=== PATIENT | male | born 1980 | race Caucasian/White ===

== ENCOUNTER 2016-10-15 20:06 | Emergency (ER) | payer MEDICAID ==
[~2016-10-15] VITALS: Ht 175.3 cm; Wt 67.7 kg
[2016-10-15] MEDS ORDERED: IBUP200C5 PO (20:28)
[2016-10-15] MEDS ORDERED: KETOROLAC 30 MG/1 ML ONE (20:51)
[2016-10-15] MEDS ORDERED: METHOCARBAMOL 750 MG TABLET ONE (20:51)
[2016-10-15] MEDS ORDERED: METHOCARBAMOL 750 MG TABLET PO ONE (22:00)
[2016-10-15] MEDS ORDERED: KETOROLAC 30 MG/1 ML IM ONE (22:00)
[2016-10-15 22:40] VITALS: BP 111/77
== END 2016-10-15 22:42 | disposition home or self-care (01) ==
LOC: ED 22:25
DX: S39.012A Strain of muscle, fascia and tendon of lower back, initial encounter (principal); S29.012A Strain of muscle and tendon of back wall of thorax, initial encounter; N30.01 Acute cystitis with hematuria; F17.200 Nicotine dependence, unspecified, uncomplicated; G89.29 Other chronic pain; X58.XXXA Exposure to other specified factors, initial encounter; Y93.89 Activity, other specified; Y92.89 Other specified places as the place of occurrence of the external cause; Y99.8 Other external cause status
CPT/HCPCS: 71010; 81001; 87086; 96372; 99285; J1885

== ENCOUNTER 2017-01-20 11:10 | Emergency (ER) | payer MEDICAID ==
[~2017-01-20] VITALS: Ht 175.3 cm; Wt 75.0 kg
[~2017-01-20 11:10] MED LIST: IBUP200C5 PO
[2017-01-20 11:12] VITALS: BP 118/79
[2017-01-20] MEDS ORDERED: LIDOCAINE 1%, 20ML ONE (13:59)
[2017-01-20] MEDS ORDERED: LIDOCAINE 1%, 20ML SQ ONE (14:00)
[2017-01-20] MEDS ORDERED: DIPH,PERTUSS(ACELL),TET VAC/PF 0.5 ML IM-VACC ONE ×2 (14:00)
== END 2017-01-20 14:30 | disposition home or self-care (01) ==
LOC: ED 14:24
DX: K64.8 Other hemorrhoids (principal); L73.9 Follicular disorder, unspecified; L03.012 Cellulitis of left finger; G43.909 Migraine, unspecified, not intractable, without status migrainosus
CPT/HCPCS: 99283

== ENCOUNTER 2017-05-24 17:28 | Emergency (ER) | payer MEDICAID ==
[~2017-05-24] VITALS: Ht 152.4 cm; Wt 66.9 kg
[2017-05-24 18:30] LABS: BASOPHILS # (AUTO) 0.02 x10^3/uL (0-0.1); BASOPHILS % (AUTO) 0 % (0-1); EOSINOPHILS # (AUTO) 0.09 x10^3/uL (0-0.4); EOSINOPHILS % (AUTO) 1 % (1-7); LYMPHOCYTES # (AUTO) 0.95 x10^3/uL (1-3.4); LYMPHOCYTES % (AUTO) 9 % (22-44); MD NO; MEAN CORPUSCULAR HEMOGLOBIN 29.8 pg (27.5-34.5); MEAN CORPUSCULAR HGB CONC 34.3 g/dL (33.2-36.2); MEAN CORPUSCULAR VOLUME 86.8 fL (81-97); MEAN PLATELET VOLUME 7.9 fL (7.4-10.4); MONOCYTES # (AUTO) 0.54 x10^3/uL (0.2-0.8); MONOCYTES % (AUTO) 5 % (2-9); NEUTROPHILS # (AUTO) 8.56 x10^3/uL (1.8-6.8); NEUTROPHILS % (AUTO) 84 % (42-75); PLATELET COUNT 257 x10^3/uL (130-400); RED CELL DISTRIBUTION WIDTH 12.9 % (9.4-14.8)
[2017-05-24] MEDS ORDERED: CLINDAMYCIN PMX 600MG/50ML 50 ML IVPB ONE (18:30)
[2017-05-24] MEDS ORDERED: MORPHINE SULFATE 4 MG/ML, 1ML ONE (18:32)
[2017-05-24] MEDS ORDERED: CLINDAMYCIN PMX 600MG/50ML 50 ML ONE (18:32)
[2017-05-24] MEDS: MORPHINE SULFATE 4 MG/ML, 1ML IV PRN ×2 (18:35→18:49)
[2017-05-24 18:40] LABS: ALBUMIN 3.3 g/dL (3.4-5.0); ANION GAP 6 mmol/L (5-15); CALCIUM 8.4 mg/dL (8.5-10.1); CHLORIDE 107 mmol/L (98-107); CREATININE 0.87 mg/dL (0.7-1.3)
[2017-05-24] MEDS ORDERED: SODIUM CHLORIDE 0.9% 1,000ML IVBOLUS ONE (19:30)
[2017-05-24 20:04] VITALS: BP 115/65
== END 2017-05-24 20:16 | disposition home or self-care (01) ==
LOC: ED 20:10
DX: L03.113 Cellulitis of right upper limb (principal); R00.0 Tachycardia, unspecified; F17.200 Nicotine dependence, unspecified, uncomplicated
CPT/HCPCS: 36415; 73130; 80048; 82040; 83605; 85025; 87040; 96365; 96375; 99285; J7030

== ENCOUNTER 2017-08-19 03:43 | Emergency (ER) | payer MEDICAID ==
[~2017-08-19] VITALS: Ht 175.3 cm; Wt 63.6 kg
[2017-08-19 03:44] VITALS: BP 112/76
== END 2017-08-19 03:49 | disposition left against medical advice (07) ==
LOC: ED 03:43
DX: Z53.21 Procedure and treatment not carried out due to patient leaving prior to being seen by health care provider (principal)

== ENCOUNTER 2017-08-26 11:25 | Emergency (ER) | payer MEDICAID ==
[~2017-08-26] VITALS: Ht 175.3 cm; Wt 61.8 kg
[2017-08-26 11:31] VITALS: BP 121/83
[2017-08-26] MEDS ORDERED: MAALOX/HYOSCYAMINE/LIDOCAINE 45 ML BTL PO ONE (12:00)
[2017-08-26] MEDS ORDERED: ONDANSETRON 2MG/ML, 2ML IVPush ONE (12:00)
[2017-08-26] MEDS ORDERED: SODIUM CHLORIDE FLUSH 10ML SYR IVF ONE (12:00)
[2017-08-26] MEDS ORDERED: DICYCLOMINE 10 MG/ML, 2ML IM ONE (12:00)
[2017-08-26] MEDS ORDERED: SODIUM CHLORIDE 0.9% 1,000ML IVBOLUS ONE (12:00)
[2017-08-26] MEDS ORDERED: FAMOTIDINE 20 MG/2 ML IVP ONE (12:00)
[2017-08-26] MEDS ORDERED: MAALOX/HYOSCYAMINE/LIDOCAINE 45 ML BTL ONE (12:12)
[2017-08-26] MEDS ORDERED: FAMOTIDINE 20 MG/2 ML ONE (12:12)
[2017-08-26] MEDS ORDERED: DICYCLOMINE 10 MG/ML, 2ML ONE (12:12)
[2017-08-26] MEDS ORDERED: ONDANSETRON 2MG/ML, 2ML ONE (12:12)
[2017-08-26 12:16] LABS: BASOPHILS # (AUTO) 0.01 x10^3/uL (0-0.1); BASOPHILS % (AUTO) 0 % (0-1); EOSINOPHILS # (AUTO) 0.14 x10^3/uL (0-0.4); EOSINOPHILS % (AUTO) 2 % (1-7); LYMPHOCYTES # (AUTO) 1.81 x10^3/uL (1-3.4); LYMPHOCYTES % (AUTO) 29 % (22-44); MD NO; MEAN CORPUSCULAR HEMOGLOBIN 29.7 pg (27.5-34.5); MEAN CORPUSCULAR HGB CONC 34.4 g/dL (33.2-36.2); MEAN CORPUSCULAR VOLUME 86.3 fL (81-97); MEAN PLATELET VOLUME 8.2 fL (7.4-10.4); MONOCYTES # (AUTO) 0.58 x10^3/uL (0.2-0.8); MONOCYTES % (AUTO) 9 % (2-9); NEUTROPHILS # (AUTO) 3.79 x10^3/uL (1.8-6.8); NEUTROPHILS % (AUTO) 60 % (42-75); PLATELET COUNT 311 x10^3/uL (130-400); RED BLOOD COUNT 4.62 x10^6/uL (4.38-5.82); RED CELL DISTRIBUTION WIDTH 15.5 % (9.4-14.8)
[2017-08-26 12:28] LABS: ALANINE AMINOTRANSFERASE 33 U/L (12-78); ALBUMIN 3.4 g/dL (3.4-5.0); ANION GAP 5 mmol/L (5-15); CALCIUM 8.3 mg/dL (8.5-10.1); CHLORIDE 116 mmol/L (98-107); CREATININE 0.96 mg/dL (0.7-1.3)
[2017-08-26 12:30] LABS: ALKALINE PHOSPHATASE 86 U/L (45-117); BILIRUBIN,TOTAL 0.5 mg/dL (0.2-1.0); TOTAL PROTEIN 6.4 g/dL (6.4-8.2)
== END 2017-08-26 14:15 | disposition home or self-care (01) ==
LOC: ED 13:45
DX: R11.2 Nausea with vomiting, unspecified (principal); R19.7 Diarrhea, unspecified; R10.9 Unspecified abdominal pain
CPT/HCPCS: 36415; 80053; 83690; 85025; 86677; 96361; 96374; 96375; 99285; J2405; J7030; S0028

== ENCOUNTER 2017-08-30 02:24 | Emergency (ER) | payer MEDICAID ==
[~2017-08-30] VITALS: Ht 172.7 cm; Wt 65.0 kg
[2017-08-30 02:25] VITALS: BP 111/76
[2017-08-30] MEDS ORDERED: DICYCLOMINE 10 MG/ML, 2ML ONE (02:56)
[2017-08-30] MEDS ORDERED: ONDANSETRON 2MG/ML, 2ML ONE (02:56)
[2017-08-30] MEDS ORDERED: DICYCLOMINE 10 MG/ML, 2ML IM ONE (03:00)
[2017-08-30] MEDS ORDERED: SODIUM CHLORIDE FLUSH 10ML SYR IVF ONE (03:00)
[2017-08-30] MEDS ORDERED: ONDANSETRON 2MG/ML, 2ML IVPush ONE (03:00)
[2017-08-30] MEDS ORDERED: SODIUM CHLORIDE 0.9% 1,000ML IVBOLUS ONE (03:00)
[2017-08-30 03:05] LABS: BASOPHILS # (AUTO) 0.03 x10^3/uL (0-0.1); BASOPHILS % (AUTO) 0 % (0-1); EOSINOPHILS # (AUTO) 0.18 x10^3/uL (0-0.4); EOSINOPHILS % (AUTO) 2 % (1-7); LYMPHOCYTES # (AUTO) 2.41 x10^3/uL (1-3.4); LYMPHOCYTES % (AUTO) 27 % (22-44); MD NO; MEAN CORPUSCULAR HEMOGLOBIN 29.8 pg (27.5-34.5); MEAN CORPUSCULAR HGB CONC 34.3 g/dL (33.2-36.2); MEAN CORPUSCULAR VOLUME 86.8 fL (81-97); MEAN PLATELET VOLUME 8.3 fL (7.4-10.4); MONOCYTES # (AUTO) 0.74 x10^3/uL (0.2-0.8); MONOCYTES % (AUTO) 8 % (2-9); NEUTROPHILS # (AUTO) 5.67 x10^3/uL (1.8-6.8); NEUTROPHILS % (AUTO) 63 % (42-75); PLATELET COUNT 330 x10^3/uL (130-400); RED BLOOD COUNT 4.74 x10^6/uL (4.38-5.82); RED CELL DISTRIBUTION WIDTH 15.1 % (9.4-14.8)
[2017-08-30 03:14] LABS: ALANINE AMINOTRANSFERASE 33 U/L (12-78); ALBUMIN 3.4 g/dL (3.4-5.0); ANION GAP 5 mmol/L (5-15); CALCIUM 8.3 mg/dL (8.5-10.1); CHLORIDE 114 mmol/L (98-107); CREATININE 0.85 mg/dL (0.7-1.3)
[2017-08-30 03:16] LABS: ALKALINE PHOSPHATASE 95 U/L (45-117); BILIRUBIN,TOTAL 0.4 mg/dL (0.2-1.0); TOTAL PROTEIN 6.5 g/dL (6.4-8.2)
[2017-08-30 03:24] LABS: MICROSCOPIC INDICATED
[2017-08-30 03:33] LABS: CULTURE INDICATED? NO
== END 2017-08-30 04:23 | disposition home or self-care (01) ==
LOC: ED 03:18
DX: R10.84 Generalized abdominal pain (principal); R10.30 Lower abdominal pain, unspecified; F17.200 Nicotine dependence, unspecified, uncomplicated; R11.2 Nausea with vomiting, unspecified; R30.0 Dysuria
CPT/HCPCS: 36415; 80053; 81001; 83690; 85025; 96361; 96372; 96374; 99284; J0500; J2405; J7030

== ENCOUNTER 2018-03-07 12:50 | Emergency (ER) | payer MEDICAID ==
[~2018-03-07] VITALS: Ht 175.3 cm; Wt 67.2 kg
[~2018-03-07 12:50] MED LIST changes: +IBUP-1623 PO; -IBUP200C5 PO
[2018-03-07 13:13] VITALS: BP 136/87
[2018-03-07] MEDS ORDERED: HYDROcodone/APAP 5/325 TABLET PO ONE (13:30)
[2018-03-07] MEDS ORDERED: HYDROcodone/APAP 5/325 TABLET ONE (13:35)
== END 2018-03-07 14:00 | disposition home or self-care (01) ==
LOC: ED 13:54
DX: K02.9 Dental caries, unspecified (principal); K05.00 Acute gingivitis, plaque induced; F17.200 Nicotine dependence, unspecified, uncomplicated
CPT/HCPCS: 99283

== ENCOUNTER 2018-04-17 19:52 | Emergency (ER) | payer MEDICAID ==
[~2018-04-17] VITALS: Ht 170.2 cm; Wt 70.0 kg
[2018-04-17] MEDS ORDERED: IBUPROFEN 800 MG TABLET PO ONE (20:30)
[2018-04-17] MEDS ORDERED: IBUPROFEN 800 MG TABLET ONE (21:00)
[2018-04-17 21:07] VITALS: BP 122/86
== END 2018-04-17 21:09 | disposition home or self-care (01) ==
LOC: ED 21:00
DX: S83.412A Sprain of medial collateral ligament of left knee, initial encounter (principal); S83.422A Sprain of lateral collateral ligament of left knee, initial encounter; X58.XXXA Exposure to other specified factors, initial encounter; Y93.89 Activity, other specified; Y92.89 Other specified places as the place of occurrence of the external cause; Y99.8 Other external cause status
CPT/HCPCS: 29505; 99283

== ENCOUNTER 2019-02-15 18:10 | Emergency (ER) | payer MEDICAID ==
[~2019-02-15] VITALS: Ht 175.3 cm; Wt 71.0 kg
[2019-02-15 18:23] VITALS: BP 136/85
[2019-02-15] MEDS ORDERED: ONDANSETRON 2MG/ML, 2ML IVPush ONE (19:00)
[2019-02-15] MEDS ORDERED: MORPHINE SULFATE 4 MG/ML, 1ML IVPush PRN (19:00)
[2019-02-15] MEDS ORDERED: SODIUM CHLORIDE FLUSH 10ML SYR IVF ONE (19:00)
[2019-02-15] MEDS ORDERED: CLINDAMYCIN PMX 600MG/50ML 50 ML IV ONE (19:00)
[2019-02-15] MEDS ORDERED: MORPHINE SULFATE 4 MG/ML, 1ML ONE (19:11)
[2019-02-15] MEDS ORDERED: ONDANSETRON 2MG/ML, 2ML ONE (19:11)
[2019-02-15] MEDS ORDERED: CLINDAMYCIN PMX 600MG/50ML 50 ML ONE (19:11)
[2019-02-15 19:14] LABS: BASOPHILS # (AUTO) 0.04 x10^3/uL (0-0.1); BASOPHILS % (AUTO) 1 % (0-1); EOSINOPHILS # (AUTO) 0.31 x10^3/uL (0-0.4); EOSINOPHILS % (AUTO) 5 % (1-7); LYMPHOCYTES % (AUTO) 24 % (22-44); MD NO; MEAN CORPUSCULAR HEMOGLOBIN 30.1 pg (27.5-34.5); MEAN CORPUSCULAR VOLUME 88.6 fL (81-97); MEAN PLATELET VOLUME 8.3 fL (7.4-10.4); MONOCYTES # (AUTO) 0.61 x10^3/uL (0.2-0.8); MONOCYTES % (AUTO) 9 % (2-9); NEUTROPHILS # (AUTO) 4.16 x10^3/uL (1.8-6.8); NEUTROPHILS % (AUTO) 62 % (42-75); PLATELET COUNT 225 x10^3/uL (130-400); RED BLOOD COUNT 5.08 x10^6/uL (4.38-5.82); RED CELL DISTRIBUTION WIDTH 12.6 % (9.4-14.8)
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
[2019-02-15 19:24] LABS: ANION GAP 4 mmol/L (5-15); CALCIUM 9.1 mg/dL (8.5-10.1); CHLORIDE 111 mmol/L (98-107); CREATININE 0.88 mg/dL (0.7-1.3)
[2019-02-15] MEDS ORDERED: OMNIPAQUE 350 MG/ML, 75ML BOTTLE ONE (20:06)
== END 2019-02-15 20:59 | disposition home or self-care (01) ==
LOC: ED 20:40
DX: K04.7 Periapical abscess without sinus (principal); K02.9 Dental caries, unspecified; F17.200 Nicotine dependence, unspecified, uncomplicated
CPT/HCPCS: 36415; 70487; 80048; 85025; 96365; 96375; 99284; J2270; J2405; Q9967

== ENCOUNTER 2019-08-18 12:22 | Emergency (ER) | payer MEDICAID ==
[~2019-08-18] VITALS: Ht 175.3 cm; Wt 72.8 kg
--- NOTE | 2019-08-18 14:36 | NUR ---
NA X 1 PER RADIOLOGY
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
--- NOTE | 2019-08-18 15:56 | NUR ---
PT AMBULATORY TO BATHROOM, STEADY GAIT.
[2019-08-18 15:57] VITALS: BP 144/97
[2019-08-18] MEDS ORDERED: FLUORESCEIN/BENOXINATE 5 ML DROPS OP ONE (16:00)
[2019-08-18] MEDS ORDERED: AZITHROMYCIN 500 MG TABLET ONE (16:00)
[2019-08-18] MEDS ORDERED: CEFTRIAXONE 250 MG IM ONE (16:00)
[2019-08-18] MEDS ORDERED: AZITHROMYCIN 500 MG TABLET PO ONE (16:00)
[2019-08-18] MEDS ORDERED: CEFTRIAXONE 250 MG ONE (16:01)
[2019-08-18 17:09] LABS: MICROSCOPIC NOT IND
== END 2019-08-18 17:17 | disposition home or self-care (01) ==
LOC: ED 15:52
DX: S46.012A Strain of muscle(s) and tendon(s) of the rotator cuff of left shoulder, initial encounter (principal); A54.01 Gonococcal cystitis and urethritis, unspecified; A56.01 Chlamydial cystitis and urethritis; W10.9XXA Fall (on) (from) unspecified stairs and steps, initial encounter; Y93.73 Activity, racquet and hand sports; Y92.89 Other specified places as the place of occurrence of the external cause; Y99.9 Unspecified external cause status
CPT/HCPCS: 73030; 81003; 87491; 87591; 96372; 99284; J0696

== ENCOUNTER 2020-01-02 19:41 | Emergency (ER) | payer MEDICAID ==
[~2020-01-02] VITALS: Ht 175.3 cm; Wt 74.9 kg
--- NOTE | 2020-01-02 20:05 | NUR ---
NO EKG PER SMITH VELASQUEZ
[2020-01-02 20:33] LABS: BASOPHILS % (AUTO) 1 % (0-1); EOSINOPHILS % (AUTO) 3 % (1-7); LYMPHOCYTES % (AUTO) 28 % (22-44); MEAN CORPUSCULAR HEMOGLOBIN 29.7 pg (27.5-34.5); MEAN CORPUSCULAR HGB CONC 34.8 g/dL (33.2-36.2); MEAN PLATELET VOLUME 8.3 fL (7.4-10.4); MONOCYTES % (AUTO) 10 % (2-9); NEUTROPHILS % (AUTO) 58 % (42-75); PLATELET COUNT 285 x10^3/uL (130-400); RED BLOOD COUNT 5.45 x10^6/uL (4.38-5.82)
[2020-01-02 20:34] LABS: MD NO
[2020-01-02 20:46] LABS: ALBUMIN 4.2 g/dL (3.4-5.0); ANION GAP 4 mmol/L (5-15); CALCIUM 8.9 mg/dL (8.5-10.1); CHLORIDE 109 mmol/L (98-107)
[2020-01-02 20:49] LABS: ALANINE AMINOTRANSFERASE 65 U/L (12-78); ALKALINE PHOSPHATASE 115 U/L (45-117); BILIRUBIN,TOTAL 0.5 mg/dL (0.2-1.0); CREATININE 0.92 mg/dL (0.7-1.3); TOTAL PROTEIN 7.7 g/dL (6.4-8.2)
--- NOTE | 2020-01-02 23:10 | NUR ---
PT GIVEN INSTRUCT AND RX ZOFRAN, PT VERY UPSET WE CAN NOT RX SUBOXONE. VSS. PT TO RETURN TO ER IF WORSE OR CONCERNS.
[2020-01-02 23:11] VITALS: BP 135/88
== END 2020-01-02 23:33 | disposition home or self-care (01) ==
LOC: ED 20:11
DX: F11.23 Opioid dependence with withdrawal (principal); R11.2 Nausea with vomiting, unspecified; R94.31 Abnormal electrocardiogram [ECG] [EKG]
CPT/HCPCS: 36415; 80053; 85025; 93005; 99284

== ENCOUNTER 2020-01-11 03:19 | Emergency (ER) | payer MEDICAID ==
[~2020-01-11] VITALS: Ht 175.3 cm; Wt 77.0 kg
[2020-01-11 03:24] VITALS: BP 98/63
[2020-01-11] MEDS ORDERED: DIPHENHYDRAMINE 50 MG/ML, 1ML ONE (03:42)
[2020-01-11] MEDS ORDERED: PROMETHAZINE 25 MG/ML, 1ML ONE (03:42)
[2020-01-11] MEDS ORDERED: KETOROLAC 60 MG/2 ML ONE (03:42)
--- NOTE | 2020-01-11 03:52 | NUR ---
Medicated per order, friend at bedside. Call rios in reach.
[2020-01-11] MEDS ORDERED: DIPHENHYDRAMINE 50 MG/ML, 1ML IM ONE (04:00)
[2020-01-11] MEDS ORDERED: KETOROLAC 30 MG/1 ML IM ONE (04:00)
[2020-01-11] MEDS ORDERED: PROMETHAZINE 25 MG/ML, 1ML IM ONE (04:00)
== END 2020-01-11 04:14 | disposition home or self-care (01) ==
LOC: ED 03:49
DX: G44.219 Episodic tension-type headache, not intractable (principal); F17.210 Nicotine dependence, cigarettes, uncomplicated
CPT/HCPCS: 96372; 99284; 99406; J1200; J1885; J2550

== ENCOUNTER 2020-09-01 21:19 | Emergency (ER) | payer MEDICAID ==
[~2020-09-01] VITALS: Ht 175.3 cm; Wt 66.0 kg
[2020-09-01] MEDS ORDERED: SODIUM CHLORIDE FLUSH 10ML SYR IVF ONE (22:30)
[2020-09-01] MEDS ORDERED: ONDANSETRON 2MG/ML, 2ML IVPush ONE (22:30)
[2020-09-01] MEDS ORDERED: MORPHINE SULFATE 4 MG/ML, 1ML IVPush PRN (22:30)
[2020-09-01] MEDS ORDERED: MORPHINE SULFATE 4 MG/ML, 1ML ONE (23:04)
[2020-09-01] MEDS ORDERED: ONDANSETRON 2MG/ML, 2ML ONE (23:04)
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
[2020-09-02] VITALS: BP 105/70
--- NOTE | 2020-09-02 | NUR ---
pt resting on gurney, denies needs at this time.
--- NOTE | 2020-09-02 01:04 | NUR ---
pt resting on gurney, denies needs at this time.
--- NOTE | 2020-09-02 02:22 | NUR ---
Patient given discharge instructions and they have confirmed that they understand the instructions. Patient ambulatory with steady gait.
--- NOTE | 2020-09-02 02:24 | NUR ---
pt refused vitals at discharge\
== END 2020-09-02 02:25 | disposition home or self-care (01) ==
LOC: ED 23:55
DX: S02.641A Fracture of ramus of right mandible, initial encounter for closed fracture (principal); S10.81XA Abrasion of other specified part of neck, initial encounter; S00.81XA Abrasion of other part of head, initial encounter; F17.200 Nicotine dependence, unspecified, uncomplicated; Y04.0XXA Assault by unarmed brawl or fight, initial encounter; Y93.89 Activity, other specified; Y92.009 Unspecified place in unspecified non-institutional (private) residence as the place of occurrence of the external cause; Y99.8 Other external cause status
CPT/HCPCS: 70450; 70486; 72125; 96374; 96375; 99285; J2270; J2405